=== PATIENT | female | born 1995 | race Caucasian/White ===

== ENCOUNTER 2017-12-25 21:00 | Emergency (ER) | payer MEDICAID ==
[~2017-12-25] VITALS: Ht 162.6 cm; Wt 70.4 kg
[2017-12-25 21:04] VITALS: BP 101/65
== END 2017-12-25 22:13 | disposition home or self-care (01) ==
LOC: ED 22:07
DX: S93.492A Sprain of other ligament of left ankle, initial encounter (principal); Z59.0 Homelessness; Z88.0 Allergy status to penicillin; X50.1XXA Overexertion from prolonged static or awkward postures, initial encounter; Y93.89 Activity, other specified; Y99.8 Other external cause status; Y92.410 Unspecified street and highway as the place of occurrence of the external cause
CPT/HCPCS: 99284

== ENCOUNTER → 2018-06-05 | Outpatient (CLI) | payer MEDICAID ==
[~2018-06-05] VITALS: Ht 162.6 cm; Wt 76.8 kg
[~2018-06-05] MED LIST: LACTATED RINGERS 1,000 ML IV SCH; LACTATED RINGERS 1,000 ML IVBOLUS ONE; NITROFURANTOIN (MACROBID) 100 MG CAPSULE ONE; NITROFURANTOIN (MACROBID) 100 MG CAPSULE PO ONE
[2018-06-05 20:13] VITALS: BP 114/66
[2018-06-05 20:29] LABS: MICROSCOPIC INDICATED
[2018-06-05 20:34] LABS: AMPHETAMINE SCREEN, URINE Negative (Negative); BARBITURATE SCREEN, URINE Negative (Negative); BENZODIAZEPINE SCREEN, URINE Negative (Negative); CANNABINOID SCREEN, URINE Positive (Negative); COCAINE SCREEN, URINE Negative (Negative); METHADONE SCREEN, URINE Negative (Negative); OPIATE SCREEN, URINE Negative (Negative)
[2018-06-05 20:52] LABS: BASOPHILS # (AUTO) 0.04 x10^3/uL (0-0.1); BASOPHILS % (AUTO) 0 % (0-1); EOSINOPHILS # (AUTO) 0.03 x10^3/uL (0-0.4); EOSINOPHILS % (AUTO) 0 % (1-7); LYMPHOCYTES # (AUTO) 2.05 x10^3/uL (1-3.4); LYMPHOCYTES % (AUTO) 20 % (22-44); MD NO; MEAN CORPUSCULAR HEMOGLOBIN 31.6 pg (27.0-34.8); MEAN CORPUSCULAR HGB CONC 33.9 g/dL (32.4-35.8); MEAN CORPUSCULAR VOLUME 93.1 fL (80-100); MEAN PLATELET VOLUME 9.6 fL (7.4-10.4); MONOCYTES # (AUTO) 0.57 x10^3/uL (0.2-0.8); MONOCYTES % (AUTO) 6 % (2-9); NEUTROPHILS # (AUTO) 7.59 x10^3/uL (1.8-6.8); NEUTROPHILS % (AUTO) 74 % (42-75); PLATELET COUNT 196 x10^3/uL (130-400); RED BLOOD COUNT 3.62 x10^6/uL (3.82-5.3); RED CELL DISTRIBUTION WIDTH 14.4 % (9.6-15.2)
== END | disposition home or self-care (01) ==
LOC: LDOP 19:44
PROVIDERS: ATTEND Obstetrics & Gynecology
DX: O26.893 Other specified pregnancy related conditions, third trimester (principal); R10.9 Unspecified abdominal pain; Z3A.36 36 weeks gestation of pregnancy
CPT/HCPCS: 36415; 59025; 76805; 80307; 81001; 85025; 86592; 86762; 86850; 86900; 87081; 87086; 87340; 87806; 96360; 96361; 99211; J7120; G0463; G0475

== ENCOUNTER 2018-07-01 06:18 | Inpatient (IN) | payer MEDICAID ==
[~2018-07-01] VITALS: Ht 162.6 cm; Wt 77.0 kg
[2018-07-01] MEDS ORDERED: OXYTOCIN 30U/ 0.9% NaCL 500ML 500 ML IV ONE (06:22)
[2018-07-01] MEDS ORDERED: D5%-LACTATED RINGERS 1,000 ML IV SCH (06:22)
[2018-07-01] MEDS ORDERED: LACTATED RINGERS 1,000 ML IV SCH (06:22)
[2018-07-01] MEDS ORDERED: NEWBORN KIT ONE (06:25)
[2018-07-01] MEDS ORDERED: OXYTOCIN 30U/ 0.9% NaCL 500ML 500 ML ONE ×2 (06:25→08:40)
[2018-07-01] MEDS ORDERED: MISOPROSTOL 200 MCG TABLET ONE (06:25)
[2018-07-01] MEDS ORDERED: ONDANSETRON 2MG/ML, 2ML IVPush PRN (06:30)
[2018-07-01] MEDS ORDERED: FENTANYL PF 100 MCG/2ML IV PRN (06:30)
[2018-07-01] MEDS ORDERED: FENTANYL PF 100 MCG/2ML IVPush PRN (06:30)
[2018-07-01] MEDS ORDERED: TERBUTALINE 1 MG/ML, 1ML ONE (06:52)
[2018-07-01] MEDS ORDERED: ACETAMINOPHEN 325 MG TABLET PO PRN ×3 (07:00)
[2018-07-01] MEDS ORDERED: CARBOPROST TROMETHAMINE 250 MCG/ML, 1ML IM PRN (07:00)
[2018-07-01] MEDS ORDERED: OXYcodone/APAP 5/325MG TABLET PO PRN (07:00)
[2018-07-01] MEDS ORDERED: MISOPROSTOL 200 MCG TABLET PR PRN (07:00)
[2018-07-01] MEDS ORDERED: MAGNESIUM HYDROXIDE 8%, 30ML UDC PO PRN (07:00)
[2018-07-01] MEDS ORDERED: METHYLERGONOVINE 0.2 MG/ML IM PRN (07:00)
[2018-07-01] MEDS ORDERED: ONDANSETRON 2MG/ML, 2ML IV PRN (07:00)
[2018-07-01] MEDS ORDERED: GLYCERIN ADULT SUPP PR PRN (07:00)
[2018-07-01] MEDS ORDERED: BISACODYL 10 MG SUPP PR PRN (07:00)
[2018-07-01] MEDS ORDERED: DIPH,PERTUSS(ACELL),TET VAC/PF NC IM-VACC PRN (07:00)
[2018-07-01] MEDS ORDERED: MEASLES,MUMPS&RUBELLA VACC/PF 0.5 ML SQ PRN (07:00)
[2018-07-01] MEDS ORDERED: CALCIUM CARBONATE 500 MG TAB.CHEW PO PRN (07:00)
[2018-07-01] MEDS ORDERED: METOCLOPRAMIDE 5 MG/ML, 2ML IV PRN (07:00)
[2018-07-01] MEDS ORDERED: RHOGAM FROM BLOOD BANK 1 NOTE EA IM/IV ONE (07:00)
[2018-07-01 07:02] LABS: BASOPHILS # (AUTO) 0.01 x10^3/uL (0-0.1); BASOPHILS % (AUTO) 0 % (0-1); EOSINOPHILS # (AUTO) 0.04 x10^3/uL (0-0.4); EOSINOPHILS % (AUTO) 0 % (1-7); LYMPHOCYTES # (AUTO) 3.45 x10^3/uL (1-3.4); LYMPHOCYTES % (AUTO) 27 % (22-44); MD NO; MEAN CORPUSCULAR HEMOGLOBIN 29.9 pg (27.0-34.8); MEAN CORPUSCULAR HGB CONC 33.1 g/dL (32.4-35.8); MEAN CORPUSCULAR VOLUME 90.4 fL (80-100); MONOCYTES # (AUTO) 0.81 x10^3/uL (0.2-0.8); MONOCYTES % (AUTO) 6 % (2-9); NEUTROPHILS # (AUTO) 8.48 x10^3/uL (1.8-6.8); NEUTROPHILS % (AUTO) 66 % (42-75); PLATELET COUNT 201 x10^3/uL (130-400); RED BLOOD COUNT 3.88 x10^6/uL (3.82-5.3); RED CELL DISTRIBUTION WIDTH 15.6 % (9.6-15.2)
[2018-07-01] MEDS ORDERED: SODIUM CITRATE/CITRIC ACID 30 ML UDC ONE (07:02)
[2018-07-01] MEDS ORDERED: METOCLOPRAMIDE 5 MG/ML, 2ML ONE (07:03)
[2018-07-01] MEDS ORDERED: OXYTOCIN 10 UNITS/ML, 1ML ONE (07:10)
[2018-07-01 07:14] LABS: AMPHETAMINE SCREEN, URINE Negative (Negative); BARBITURATE SCREEN, URINE Negative (Negative); BENZODIAZEPINE SCREEN, URINE Negative (Negative); CANNABINOID SCREEN, URINE Positive (Negative); COCAINE SCREEN, URINE Negative (Negative); METHADONE SCREEN, URINE Negative (Negative); OPIATE SCREEN, URINE Negative (Negative)
[2018-07-01] MEDS ORDERED: IBUPROFEN 600 MG TABLET ONE (07:31)
[2018-07-01] MEDS: IBUPROFEN 600 MG TABLET PO PRN ×2 (07:45→17:58)
[2018-07-01] MEDS: OXYTOCIN 30U/ 0.9% NaCL 500ML 500 ML IV SCH ×2 (07:47→08:41)
[2018-07-01] MEDS ORDERED: METHYLERGONOVINE 0.2 MG/ML IM ONE (08:00)
[2018-07-01] MEDS ORDERED: OXYTOCIN 10 UNITS/ML, 1ML IM ONE (09:00)
[2018-07-01] MEDS ORDERED: TERBUTALINE 1 MG/ML, 1ML IV ONE (09:00)
[2018-07-01 09:40] VITALS: BP 111/60
[2018-07-01] MEDS: PRENATAL VIT/IRON/FA 1 EACH TABLET PO SCH (13:03)
[2018-07-01] MEDS: DOCUSATE 100 MG CAPSULE PO PRN ×2 (13:03→22:55)
[2018-07-01] MEDS: OXYcodone/APAP 5/325MG TABLET PO PRN ×2 (13:03→22:55)
[2018-07-01 13:22] VITALS: BP 108/70
[2018-07-01 15:36] LABS: MEAN CORPUSCULAR HEMOGLOBIN 30.7 pg (27.0-34.8); MEAN CORPUSCULAR HGB CONC 33.7 g/dL (32.4-35.8); MEAN PLATELET VOLUME 10.1 fL (7.4-10.4); PLATELET COUNT 186 x10^3/uL (130-400); RED BLOOD COUNT 3.28 x10^6/uL (3.82-5.3); RED CELL DISTRIBUTION WIDTH 15.2 % (9.6-15.2)
[2018-07-01 15:52] LABS: BASOPHILS # (AUTO) 0.03 x10^3/uL (0-0.1); BASOPHILS % (AUTO) 0 % (0-1); EOSINOPHILS % (AUTO) 0 % (1-7); LYMPHOCYTES # (AUTO) 2.32 x10^3/uL (1-3.4); LYMPHOCYTES % (AUTO) 12 % (22-44); MD SCAN; MONOCYTES # (AUTO) 0.71 x10^3/uL (0.2-0.8); MONOCYTES % (AUTO) 4 % (2-9); NEUTROPHILS # (AUTO) 15.73 x10^3/uL (1.8-6.8); NEUTROPHILS % (AUTO) 84 % (42-75)
[2018-07-01 16:25] VITALS: BP 118/74
[2018-07-01 19:45] VITALS: BP 107/68
[2018-07-01 23:40] VITALS: BP 107/68
[2018-07-02] MEDS: IBUPROFEN 600 MG TABLET PO PRN ×3 (01:38→20:24)
[2018-07-02] MEDS: OXYTOCIN 30U/ 0.9% NaCL 500ML 500 ML IV SCH ×3 (02:53→22:53)
[2018-07-02] MEDS: OXYcodone/APAP 5/325MG TABLET PO PRN ×3 (07:33→20:23)
[2018-07-02 08:01] VITALS: BP 100/63
[2018-07-02] MEDS: PRENATAL VIT/IRON/FA 1 EACH TABLET PO SCH (09:41)
[2018-07-02] MEDS: DOCUSATE 100 MG CAPSULE PO PRN ×2 (09:41→20:24)
[2018-07-02 19:30] VITALS: BP 108/67
[2018-07-03] MEDS: OXYcodone/APAP 5/325MG TABLET PO PRN (03:01)
[2018-07-03] MEDS: IBUPROFEN 600 MG TABLET PO PRN ×2 (03:01→11:17)
[2018-07-03 07:10] VITALS: BP 113/62
[2018-07-03] MEDS: DOCUSATE 100 MG CAPSULE PO PRN (07:11)
[2018-07-03] MEDS: PRENATAL VIT/IRON/FA 1 EACH TABLET PO SCH (07:12)
[2018-07-03 07:30] VITALS: BP 116/74
[2018-07-03] MEDS: OXYTOCIN 30U/ 0.9% NaCL 500ML 500 ML IV SCH (08:53)
[2018-07-03] MEDS ORDERED: IBUP-1222 PO (11:47)
== END 2018-07-03 14:10 | disposition home or self-care (01) | DRG 775 ==
LOC: LDOP 06:18 → LDIP 06:22 → 2NW 09:32
PROVIDERS: ADMIT Obstetrics & Gynecology; ATTEND Obstetrics & Gynecology
PROC: 10E0XZZ Delivery of Products of Conception, External Approach (ICD-10-PCS; principal; 2018-07-01)
PROC: 0HQ9XZZ Repair Perineum Skin, External Approach (ICD-10-PCS; 2018-07-01)
PROC: 10907ZC Drainage of Amniotic Fluid, Therapeutic from Products of Conception, Via Natural or Artificial Opening (ICD-10-PCS; 2018-07-01)
DX: O76 Abnormality in fetal heart rate and rhythm complicating labor and delivery (principal); O99.324 Drug use complicating childbirth; O70.0 First degree perineal laceration during delivery; O99.344 Other mental disorders complicating childbirth; F12.90 Cannabis use, unspecified, uncomplicated; F32.9 Major depressive disorder, single episode, unspecified; Z37.0 Single live birth; Z3A.36 36 weeks gestation of pregnancy
CPT/HCPCS: 36415; 80307; 82803; 85025; 86850; 86900; 88307; 99285; J2210; J2590; J3105; J7120

== ENCOUNTER 2018-11-22 18:59 | Emergency (ER) | payer SELFPAY ==
[~2018-11-22] VITALS: Ht 162.6 cm; Wt 74.0 kg
[~2018-11-22 18:59] MED LIST changes: +IBUP-1222 PO; -LACTATED RINGERS 1,000 ML IV SCH; -LACTATED RINGERS 1,000 ML IVBOLUS ONE; -NITROFURANTOIN (MACROBID) 100 MG CAPSULE ONE; -NITROFURANTOIN (MACROBID) 100 MG CAPSULE PO ONE
[2018-11-22] MEDS ORDERED: ACETAMINOPHEN 325 MG TABLET PO ONE (19:30)
[2018-11-22] MEDS ORDERED: ACETAMINOPHEN 325 MG TABLET ONE (19:48)
[2018-11-22 19:55] VITALS: BP 112/73
== END 2018-11-22 20:06 | disposition home or self-care (01) ==
LOC: ED 19:27
DX: K43.2 Incisional hernia without obstruction or gangrene (principal); F17.200 Nicotine dependence, unspecified, uncomplicated; Z88.0 Allergy status to penicillin; Z88.7 Allergy status to serum and vaccine
CPT/HCPCS: 99283

== ENCOUNTER 2019-01-15 11:23 | Emergency (ER) | payer OTHER ==
[~2019-01-15] VITALS: Ht 162.6 cm; Wt 70.0 kg
[2019-01-15] MEDS ORDERED: SODIUM CHLORIDE 0.9% 1,000ML IVBOLUS ONE (11:30)
[2019-01-15] MEDS ORDERED: SODIUM CHLORIDE FLUSH 10ML SYR IVF ONE (11:30)
--- NOTE | 2019-01-15 11:40 | NUR ---
Patient brought in by EMS for nausea and vomiting, IV started by EMS prior to arrival with zofran 4mg given prior to arrival. Patient reports she is still nauseous but no vomiting currently. Patient reports she took home tests x3 two days ago, LMP 11/29/18. Patient laying in gurney, no acute distress at this time, call corona within reach.
[2019-01-15 11:46] LABS: BASOPHILS # (AUTO) 0.04 x10^3/uL (0-0.1); BASOPHILS % (AUTO) 0 % (0-1); EOSINOPHILS # (AUTO) 0.01 x10^3/uL (0-0.4); EOSINOPHILS % (AUTO) 0 % (1-7); LYMPHOCYTES # (AUTO) 2.91 x10^3/uL (1-3.4); LYMPHOCYTES % (AUTO) 29 % (22-44); MD NO; MEAN CORPUSCULAR HEMOGLOBIN 29.5 pg (27.0-34.8); MEAN CORPUSCULAR VOLUME 89.2 fL (80-100); MEAN PLATELET VOLUME 9.4 fL (7.4-10.4); MONOCYTES # (AUTO) 0.65 x10^3/uL (0.2-0.8); MONOCYTES % (AUTO) 6 % (2-9); NEUTROPHILS # (AUTO) 6.59 x10^3/uL (1.8-6.8); NEUTROPHILS % (AUTO) 65 % (42-75); PLATELET COUNT 255 x10^3/uL (130-400); RED BLOOD COUNT 4.71 x10^6/uL (3.82-5.3); RED CELL DISTRIBUTION WIDTH 17.7 % (9.6-15.2)
--- NOTE | 2019-01-15 11:55 | NUR ---
report received from [facility].
[2019-01-15 11:57] LABS: ALBUMIN 3.8 g/dL (3.4-5.0); ANION GAP 9 mmol/L (5-15); CALCIUM 9.6 mg/dL (8.5-10.1); CHLORIDE 111 mmol/L (98-107)
[2019-01-15 11:58] LABS: ALANINE AMINOTRANSFERASE 16 U/L (12-78); CREATININE 0.76 mg/dL (0.55-1.02)
--- NOTE | 2019-01-15 12:05 | NUR ---
urine collected and sent to lab. pt a&o, resps even and unlabored. no n/v at this time. awaiting US at this time.
[2019-01-15 12:14] LABS: CULTURE INDICATED? YES; MICROSCOPIC INDICATED
[2019-01-15 12:17] LABS: ALKALINE PHOSPHATASE 75 U/L (45-117); BILIRUBIN,TOTAL 0.4 mg/dL (0.2-1.0); TOTAL PROTEIN 7.2 g/dL (6.4-8.2)
--- NOTE | 2019-01-15 12:35 | NUR ---
pt in US at this time.
--- NOTE | 2019-01-15 13:02 | NUR ---
pt back from US. pt a&o, resps even and unlabored. bp and spo2 monitors in place. awaiting US results and dispo.
--- NOTE | 2019-01-15 13:14 | NUR ---
EDMD Sahm at bedside to update pt with results and POC.
[2019-01-15 13:55] VITALS: BP 95/60
--- NOTE | 2019-01-15 13:56 | NUR ---
PT GIVEN DC INSTRUCTIONS AND SCRIPT. PT TOLERATING PO FLUIDS/FOOD WITH NO N/V. PT PROVIDED WITH CAB VOUCHER AND SWEATER AT REQUEST. PT A&O, RESPS EVEN AND UNLABORED, NADN AT DC. PT AMB TO DC DESK WITH STEADY GAIT, NADN AT DC.
== END 2019-01-15 13:57 | disposition home or self-care (01) ==
LOC: ED 12:00
DX: O21.9 Vomiting of pregnancy, unspecified (principal); O99.331 Smoking (tobacco) complicating pregnancy, first trimester; K43.2 Incisional hernia without obstruction or gangrene; J45.909 Unspecified asthma, uncomplicated; Z3A.13 13 weeks gestation of pregnancy
CPT/HCPCS: 36415; 76801; 80053; 81001; 83690; 84702; 85025; 87086; 96360; 99284; J7030

== ENCOUNTER 2019-07-03 20:38 | Outpatient (CLI) | payer MEDICAID ==
[~2019-07-03] VITALS: Ht 162.6 cm; Wt 70.9 kg
[2019-07-03 21:22] VITALS: BP 108/74
== END 2019-07-03 22:10 | disposition home or self-care (01) ==
LOC: LDOP 20:38
PROVIDERS: ATTEND Obstetrics & Gynecology
DX: O26.893 Other specified pregnancy related conditions, third trimester (principal); R10.2 Pelvic and perineal pain; O47.03 False labor before 37 completed weeks of gestation, third trimester; O42.913 Preterm premature rupture of membranes, unspecified as to length of time between rupture and onset of labor, third trimester; O99.323 Drug use complicating pregnancy, third trimester; Z88.0 Allergy status to penicillin; Z3A.30 30 weeks gestation of pregnancy
CPT/HCPCS: 59025; 76815; 80307; 81001; 87086; 89060; 99211; J3105; G0463; Q0114